=== PATIENT | male | born 1970 | race Caucasian/White ===

== ENCOUNTER 2017-01-08 14:40 | Outpatient (CLI) | payer OTHER ==
[2017-01-08 15:13] LABS: #Basophils 0.1 thou/uL (0.0-0.2); #Eosinphils 0.4 thou/uL (0.0-0.7); #Lymphocytes 2.2 thou/uL (1.20-3.40); #Monocytes 0.5 thou/uL (0.11-0.59); #Neutrophils 6.8 thou/uL (1.40-6.50); %Basophils 1.2 % (0.0-1.0); %Eosinophils 3.5 % (0.0-10.0); %Lymphocytes 21.8 % (21.0-51.0); %Neutrophils 68.4 % (42.0-75.0); Hemoglobin 15.8 g/dL (14.0-18.0); Mean Corpuscular HGB CONC 32.9 g/dL (32.0-36.0); Mean Corpuscular Hemoglobin 28.3 pg (27.0-31.0); Mean Platelet Volume 6.3 fL (7.4-10.4); Platelet Count 275 thou/uL (130-400); RBC Distribution Width 11.9 % (11.5-14.5); White Blood Cell (WBC) Count 9.9 thou/uL (4.8-10.8)
[2017-01-08 15:26] LABS: ALT (SGPT) 56 U/L (8-55); AST (SGOT) 31 U/L (5-34); Albumin 4.5 g/dL (3.5-5.0); Alkaline Phosphatase 83 U/L (40-150); Anion Gap 15 mmol/L (10-20); BUN (Urea Nitrogen) 9 mg/dL (8.9-20.6); Bilirubin, Total 0.8 mg/dL (0.2-1.2); Calc. Creatinine Clearance 0 mL/min (70-130); Calcium 9.9 mg/dL (7.8-10.44); Carbon Dioxide 25 mmol/L (22-29); Chloride 103 mmol/L (98-107); Estimated GFR-MDRD 68; Globulin 2.7 g/dL (2.4-3.5); Glucose 137 mg/dL (70-105); Lipase 6 U/L (8-78); Potassium 3.7 mmol/L (3.5-5.1); Protein, Total 7.2 g/dL (6.0-8.3); Sodium 139 mmol/L (136-145)
== END 2017-01-08 14:41 | disposition home or self-care (01) ==
LOC: NAV LAB 14:40
PROVIDERS: ATTEND Family Medicine
DX: K21.9 Gastro-esophageal reflux disease without esophagitis (principal)
CPT/HCPCS: 80053; 83690; 85025

== ENCOUNTER 2019-07-21 11:10 | Outpatient (CLI) | payer OTHER ==
--- NOTE | 2019-07-21 11:40 | RAD ---
Left ankle 3 views HISTORY: Left ankle injury. FINDINGS: Ankle mortise and talar dome are intact. There is truncation of the fibular tip may be post operative. No aggressive osseous erosions. Soft tissue swelling over lateral malleolus. Loss of plantar arch on the lateral view. Degenerative changes of the midfoot and hindfoot. Small plantar janet l spur. IMPRESSION: Degenerative changes. No acute osseous abnormalities are demonstrated. Old posttraumatic versus postoperative changes of the fibular tip. Pes planus.
== END 2019-07-21 11:11 | disposition home or self-care (01) ==
LOC: NAV RAD 11:10
PROVIDERS: ATTEND Family Medicine
DX: S93.422A Sprain of deltoid ligament of left ankle, initial encounter (principal); M21.42 Flat foot [pes planus] (acquired), left foot; M19.072 Primary osteoarthritis, left ankle and foot